=== PATIENT | female | born 1980 | race Caucasian/White ===

== ENCOUNTER 2021-03-23 11:59 | Emergency (ER) | payer SELFPAY ==
[2021-03-23 12:11] VITALS: BP 155/82; PULSE 80; RESP 16; TEMP 36.4; O2SAT 99
--- NOTE | 2021-03-23 12:23 | ED.EYEPROB ---
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 use [id number] pinkeye meds and ibuprofen-eye is almost glued shut in the morning and needs warm soak to help open her eye and states that the ibuprofen has not been helping much the last few days Related Data Home Medications Medication Instructions Recorded Confirmed bupropion HCl mg PO 03/23/21 dulaglutide [Trulicity] mg SUBCUT 03/23/21 hydroxyzine HCl 03/23/21 insulin glargine [Lantus Solostar 25 unit SUBCUT BID 03/23/21 03/23/21 U-100 Insulin] metformin mg PO 03/23/21 Allergies Allergy/AdvReac Type Severity Reaction Status Date / Time No Known Allergies Allergy Unknown Unverified 11/24/18 17:57 No Known Allergies Allergy Uncoded 11/24/18 17:57 Review of Systems Review of Systems: CONSTITUTIONAL: Denies fever, chills, sweats. EYES: Denies visual changes, right eye redness with discharge. ENT: Denies rhinorrhea, congestion, sore throat, otalgia. CARDIOVASCULAR: Denies chest pain, palpitations, edema. RESPIRATORY: Denies dyspnea, wheezing, cough GASTROINTESTINAL: Denies abdominal pain, nausea, vomiting, diarrhea. GENITOURINARY: Denies dysuria, hematuria, abnormal discharge SKIN: Denies rash or itching. NEUROLOGIC: Denies numbness, or focal weakness. PSYCHIATRIC: Denies anxiety or depression. [facility] Past Medical History Medical History Anxiety Depression Diabetes Family History Family History Father Hypertension Cerebrovascular accident Grandparent Family history of type 2 diabetes mellitus Mother Family history of type 2 diabetes mellitus Social History Social History Smoking status: Never smoker Second hand tobacco smoke exposure: No Alcohol intake: current Comments At time of signature, I agree with nursing past medical, surgical, social and family history. There is no relevant family history pertinent to the presenting complaint. Exam Narrative: GENERAL: This is a well-nourished, well-developed patient, in mild distress. HEAD: normocephalic, atraumatic. EYES: PERRL. The patient has been informed that they may have pre-hypertension or Hypertension based on a BP reading in the department. It is recommended that the patient call the primary care provider listed on their discharge instructions or a physician of their choice this week to arrange follow up for further evaluation of possible pre-hypertension or Hypertension. Right eyelid swelling and sclera injected; L sclera clear/white. Vision is grossly intact. EARS: External ears normal, auditory canals clear and without drainage, TMs normal without perforation. Hearing grossly intact. NOSE: External nose normal without nasal discharge, nares without redness, no rhinorrhea. THROAT: Mucous membranes moist, NECK: Neck supple, non-tender CARDIOVASCULAR: Regular rate and rhythm without murmurs, gallops, or rubs. RESPIRATORY: Clear to auscultation. Breath sounds equal bilaterally. No wheezes, rales, or rhonchi. GASTROINTESTINAL: Abdomen soft, SKIN: warm, intact with no suspicious lesions or rash, good texture and turgor. NEURO: awake, alert, and oriented to person, place and time. There were no obvious focal neurologic abnormalities. Steady gait EXTREMITIES: Normal range of motion. BACK: Nontender without deformity Course Course Emergency Course: Patient comes with right swollen eye, had tell him health appointment with Who told
== END 2021-03-23 12:59 | disposition home or self-care (01) ==
PROVIDERS: Emergency Provider Nurse Practitioner
DX: H10.9 Unspecified conjunctivitis (principal); E11.9 Type 2 diabetes mellitus without complications; F41.9 Anxiety disorder, unspecified; F32.A Depression, unspecified
CPT/HCPCS: 99213; G0463

== ENCOUNTER 2022-02-12 19:14 | Emergency (ER) | payer SELFPAY ==
--- NOTE | 2022-02-12 19:17 | ED.URI ---
HPI - URI/Sore Throat General Chief Complaint: Upper Respiratory Infection Stated Complaint: uri Time Seen by Provider: 02/12/22 19:17 Source: patient Mode of arrival: ambulatory Limitations: no limitations History of Present Illness HPI Narrative: Ms. Castelan is a 41-year-old female patient presenting to clinic today with complaints of sinus pressure, nasal congestion, dental pain, facial pain X3 days. She reports She has had some greenish brown nasal drainage. Reports that it feels as though symptom may be popping in her sinuses and relieving the pain however refills. MD elicited complaint: sore throat and nasal congestion Related Data Home Medications Medication Instructions Recorded Confirmed bupropion HCl 150 mg 24 hr tablet, mg PO 03/23/21 extended release dulaglutide 1.5 mg/0.5 mL mg subcut 03/23/21 subcutaneous pen injector (Trulicity) hydroxyzine HCl 25 mg tablet 03/23/21 insulin glargine 100 unit/mL (3 25 unit subcut BID 03/23/21 03/23/21 mL) subcutaneous pen (Lantus Solostar U-100 Insulin) metformin 500 mg tablet,extended mg PO 03/23/21 release 24 hr Allergies Allergy/AdvReac Type Severity Reaction Status Date / Time No Known Allergies Allergy Unknown Unverified 11/24/18 17:57 No Known Allergies Allergy Uncoded 11/24/18 17:57 Review of Systems Review of Systems: Pertinent positives per HPI. Patient denies any fever, chills, rash, headache, visual changes, dizziness, cough, shortness of breath, chest pain, palpitations, nausea, vomiting, diarrhea, constipation, abdominal pain, or any urinary issues. [facility] Past Medical History Medical History Anxiety Depression Diabetes Family History Family History Father Hypertension Cerebrovascular accident Grandparent Family history of type 2 diabetes mellitus Mother Family history of type 2 diabetes mellitus Social History Social History Smoking status: Never smoker Second hand tobacco smoke exposure: No Alcohol intake: current Comments At the time of my signature, I reviewed and agree with the nursing past medical, surgical, social, and family history. There is no relevant family history pertinent to the patient complaint. Exam Narrative: General: Well-developed, well nourished, in no apparent distress Head: Normocephalic, atraumatic Eyes: Pupils equally round and reactive to light bilaterally, EOM intact, sclera and conjunctive clear, no discharge, lids normal Ears: TMs intact and clear, ear canals clear, no drainage, grossly hearing normal. Nose: Nares patent, no discharge, no inflammation, left-sided ethmoid and maxillary sinus tenderness. Mouth: Oral pharynx without lesions or masses, poor dentition, MMM. control pain to palpation over tooth numbers 12/03/ Neck: Supple, trachea midline, no enlargement of anterior or posterior cervical nodes, no thyroid masses or goiter palpable. Cardio: Regular rate and rhythm, s1 and s2 normal, no murmur appreciated. Resp: Clear to auscultation bilaterally, no rhonchi, rales, wheezing or rubs Course Course Emergency Course: Portions of this record may have been created with voice recognition software. Level of Care: Express Care Visit Vital Signs Vital signs: Vital Signs Temperature 36.5 C 02/12/22 19:21 Pulse Rate 95 02/12/22 19:21 Respiratory Rate 16 02/12/22 19:21 Blood Pressure 151/98 H 02/12/22 19:21 Pulse Oximetry 100 02/12/22 19:21 Oxygen Delivery Room Air 02/12/22 19:21 Temperature 36.5 C 02/12/22 19:21 Pulse Rate 95 02/12/22 19:21 Respiratory Rate 16 02/12/22 19:21 Blood Pressure 151/98 H 02/12/22 19:21 Pulse Oximetry 100 02/12/22 19:21 Oxygen Delivery Room Air 02/12/22 19:21 Vital signs reviewed MDM - URI/Sore
[2022-02-12 19:21] VITALS: BP 151/98; PULSE 95; RESP 16; TEMP 36.5; O2SAT 100
== END 2022-02-12 19:35 | disposition home or self-care (01) ==
PROVIDERS: Emergency Provider Nurse Practitioner Family; PCP Family Medicine
DX: J01.90 Acute sinusitis, unspecified (principal); F41.9 Anxiety disorder, unspecified; F32.A Depression, unspecified; E11.9 Type 2 diabetes mellitus without complications; Z79.4 Long term (current) use of insulin; Z79.84 Long term (current) use of oral hypoglycemic drugs
CPT/HCPCS: 99213; G0463

== ENCOUNTER 2022-05-15 17:26 | Emergency (ER) | payer OTHER, SELFPAY ==
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
[2022-05-15 17:46] VITALS: BP 154/98; PULSE 100; RESP 16; TEMP 36.7; O2SAT 100
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
[2022-05-15] MEDS: ACETAMINOPHEN 500 MG TABLET 1000 MG PO (19:24)
[2022-05-15] MEDS: diazePAM (*CRX) 5 MG TABLET PO (19:25)
[2022-05-15] MEDS: predniSONE 20 MG TABLET 60 MG PO (19:25)
[2022-05-15] MEDS: IBUPROFEN 400 MG TABLET PO (19:25)
[2022-05-15 19:35] VITALS: BP 142/70; PULSE 70; RESP 14; O2SAT 98
== END 2022-05-15 19:36 | disposition home or self-care (01) ==
PROVIDERS: Emergency Provider Emergency Medicine; PCP Family Medicine
DX: S46.911A Strain of unspecified muscle, fascia and tendon at shoulder and upper arm level, right arm, initial encounter (principal); M62.830 Muscle spasm of back; V49.40XA Driver injured in collision with unspecified motor vehicles in traffic accident, initial encounter; M25.511 Pain in right shoulder; M54.50 Low back pain, unspecified; E11.9 Type 2 diabetes mellitus without complications; F41.9 Anxiety disorder, unspecified; F32.A Depression, unspecified
CPT/HCPCS: 73030; 81025; 99283; A9270; J7512